=== PATIENT | male | born 2000 | race Caucasian/White ===

== ENCOUNTER 2020-05-20 14:45 | Outpatient (REF) | payer BC, SELFPAY ==
[2020-05-24 03:17] LABS: Patient Race White; SARS-CoV-2 RNA Undetected (Undetected); SARS-CoV-2 Specimen Source Nasal
== END 2020-05-20 15:05 ==
LOC: NCHCN 14:45
PROVIDERS: Visit Provider Nurse Practitioner Family
DX: Z20.828 Contact with and (suspected) exposure to other viral communicable diseases (principal)
CPT/HCPCS: U0003

== ENCOUNTER 2020-11-07 18:23 | Outpatient (REF) | payer BC, SELFPAY ==
[2020-11-08 15:54] LABS: COVID-19 RT-PCR UVMMC Result Negative (Negative)
== END 2020-11-07 18:24 | disposition home or self-care (01) ==
LOC: NCHCN 18:23
PROVIDERS: Visit Provider Nurse Practitioner Family
DX: Z20.822 Contact with and (suspected) exposure to COVID-19 (principal)
CPT/HCPCS: U0003

== ENCOUNTER 2024-07-26 17:48 | Outpatient (REF) | payer BC, SELFPAY ==
[2024-07-26 21:16] LABS: TSH (W/Ref FT4) 1.57 uIU/mL (0.36-3.74)
[2024-07-30 10:34] LABS: IgA 260 mg/dL (85-499); Interpretation (See Note); Tissue Transglutaminase IgA <4.0 CU (<20.0)
== END 2024-07-26 17:49 | disposition home or self-care (01) ==
LOC: NCHCN 17:48
PROVIDERS: Visit Provider Nurse Practitioner Family
DX: R19.7 Diarrhea, unspecified (principal)
CPT/HCPCS: 82784; 83516; 84443